=== PATIENT | male | born 1960 | race Caucasian/White ===

== ENCOUNTER 2021-05-23 11:04 | Emergency (ER) | payer BC, SELFPAY ==
[2021-05-23] VITALS (14 sets, daily range): BP systolic 119–136; BP diastolic 60–77; PULSE 63–89; RESP 16–26; TEMP 36.1; O2SAT 98–100
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
--- NOTE | 2021-05-23 11:09 | ECG_ITS ---
Measurements Intervals Bronson Rate: 75 P: 74 VT: 220 QRS: 72 QRSD: 116 T: 47 QT: 406 QTc: 455 Interpretive Statements SINUS RHYTHM WITH FIRST DEGREE AV BLOCK INCOMPLETE RIGHT BUNDLE BRANCH BLOCK BASELINE ARTIFACT- I, II, III ABNORMAL ECG Electronically Signed On 05-23-2021 20:48:13 CDT by Nathan Ramirez D.O.
[2021-05-23 11:14] LABS: Glucose Point of Care 222 mg/dl (65-105)
[2021-05-23 11:36] LABS: Glucose Point of Care 159 mg/dl (65-105)
[2021-05-23 12:05] LABS: Basophils Percent Auto 0.4 % (0.2-1.2); Eosinophils Percent Auto 0.3 % (0-4.4); Hematocrit 45.9 % (42.0-52.0); Hemoglobin 15.1 g/dL (14.0-18.0); Immature Granulocyte Absolute 0.02 K/mm3 (0.00-0.031); Immature Granulocyte Percent A 0.3 % (0-0.5); Lymphocytes Percent Auto 10.3 % (18.3-44.2); Mean Corpuscular HGB Conc 32.9 g/dl (32-36); Mean Corpuscular Hemoglobin 30.5 pg (26-34); Mean Corpuscular Volume 92.7 fl (80-100); Mean Platelet Volume 10.3 fl (7.4-10.4); Monocytes Absolute Auto 0.6 K/mm3 (0.1-0.6); Monocytes Percent Auto 9.4 % (2.6-8.5); Neutrophils Absolute Auto 5.4 K/mm3 (1.3-6.7); Neutrophils Percent Auto 79.3 % (45.5-73.1); Platelet Count Result 175 k/mm3 (150-375); Red Blood Count 4.95 M/mm3 (4.6-6.20); Red Cell Distribution Width 12.3 % (11.5-14.5); White Blood Count 6.8 K/mm3 (4.5-10.0)
[2021-05-23 12:14] LABS: Anion Gap 11 mmol/L (8-16); Blood Urea Nitrogen 14 mg/dL (9-20); Carbon Dioxide 27 mmol/L (22-30); Chloride 98 mmol/L (98-107); Estimated Glomerular Filt Rate > 60; Glucose 139 mg/dL (75-110); Potassium 3.6 mmol/L (3.4-5.0); Sodium 136 mmol/L (137-145)
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
== END 2021-05-23 13:31 | disposition home or self-care (01) ==
PROVIDERS: Emergency Provider Emergency Medicine
DX: E11.65 Type 2 diabetes mellitus with hyperglycemia (principal); Z79.4 Long term (current) use of insulin
CPT/HCPCS: 36415; 71045; 80048; 82948; 85025; 93005; 99283

== ENCOUNTER 2025-08-01 22:00 | Emergency (ER) | payer SELFPAY ==
--- OUTSIDE RECORDS SUMMARY | 2022-06-08 11:00 | XMS_ITS | Continuity of Care Document ---
Author Organization [facility] Address [address] [place] [address] Phone Care Team Providers Care Dietary Aide Cook Name Role Phone Chris Batista MD Unavailable Unavailable Allergies, Adverse Reactions, Alerts Substance Reaction Status Criticality PENICILLIN Active No Information Medications Medication Instructions Dosage Effective Dates (start - stop) Status Comments sulfamethoxazole 800 mg-trimethoprim 160 mg tablet Take 1 tablet two times a day; 12 hours apart for 7 days then stop. - Active Humalog U-100 Insulin 100 unit/mL subcutaneous solution inject by subcutaneous route per prescriber's instructions. Insulin dosing requires individualization. 0.00 - Active buspirone 5 mg tablet take 1 tablet by oral route 3 times every day 5 MG - Active Lantus U-100 Insulin 100 unit/mL subcutaneous solution inject by subcutaneous route as per insulin protocol 0.00 - Active Novolog U-100 Insulin aspart 100 unit/mL subcutaneous solution inject by subcutaneous route per prescriber's instructions. Insulin dosing requires individualization. 0.00 - Active Zyrtec 10 mg tablet take 1 tablet by oral route every day 10 MG - Active Procedures Procedure Date Office/outpatient Visit, Est Removal Of Chalazion Humphrey Eye Mask Office/outpatient Visit, Est Advance Directives Directive Yes / No Effective Date File Name No Information Encounters Encounter Description Practice Location Reason(s) For Visit Diagnoses Date Provider Providers Copied on Encounter Office/outpa tient Visit, [facility], [address], [place], [place], [id number], [place] tel:[phone] SEC Patricio PAT Professional 1 month f/o (chief complaint) Hordeolum externum of left upper eyelid 2 Lester Perez. [address] [facility] [address] [facility], [address], [place], [place], [address], . tel:[phone] [facility], [address], [place], [place], [address], [place] tel:[phone] SEC Lilly Castilloalana No Information 2 Lester Perez. [address], [facility] [place], [address], [place]. tel:[phone] Office/outpa tient Visit, [facility], [address], [place], [place], [address], [phone] SEC Lilly sainiema (chief complaint) Hordeolum externum of left upper eyelidPresepta l cellulitis 2 Lester Perez. [address] [address] [facility], [address], [place], [place], [address], . tel:[phone] Referring Provider: Chris Santiago, [address], [place], [address] . tel:[phone] Family History Family Member Type Diagnosis Age At Onset No Information Payers Payer name Insurance type Covered democrat ID Authorjudie morton(s[facility] [id number] Social History Type Description Quantity Date Captured Comments Alcohol Use Details No Caffeine Use Details No Tobacco Use Status Current non-smoker Smoking Status Never smoker Non-Smoking Tobacco Use Details : No Details Available : No Details Available Sex Male Chief Complaint And Reason For Visit From encounter dated '06/08/2022 16:00'. 1 month f/o (chief complaint). Description: The 61 year old patient presents for evaluation of 1 month f/u I&D FARHAN. Patient states the FARHAN is better. Not using anything at this time. Reason For Referral Reason For Referral No Information History Of Present Illness Encounter Date Complaint History Of Prese nt Illness 1 month f/o The 61 year old patient presents for evaluation of 1 month f/u I&D FARHAN. Patient states the FARHAN is better. Not using anything at this time. stye The 61 year old patient presents for evaluation of stye in the left eye. Hx of LASIK OU, IDDM I, and K ulcer OS. Pt reports he has had a stye on FARHAN for about 8-9 days, he saw Rocio Natarajan who prescribed him Keflex 500 mg BID PO although he didn't realize it was BID and he has been doing QD PO, it is better today than it has been but he would like to see if JMN can take it off. Pt reports he is using OTC gtts specifically for styes TID-QID OS and WC TID-5x/day OU. Functional Status Date Functional Assessmen t No Information Instructions Date Instruction Additional Infor mario Impression/Plan Impression/Plan Assessments Type Assessment Date assessment Hordeolum externum of left upper eyelid Patient Care Teams Name Effective Dates (start - stop) Status Members No Information
[2025-08-01 22:01] VITALS: BP 158/78; PULSE 81; RESP 15; TEMP 36.2; O2SAT 100
[2025-08-01 22:08] VITALS: O2SAT 100
--- OUTSIDE RECORDS SUMMARY | 2025-08-01 22:51 | XMS_ITS | Clinical Summary ---
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 Gender Identity Not on file Sexual Orientation Not on file Last Filed Vital Signs Vital Sign Reading Time Taken Comments Blood Pressure 160/74 01/03/2023 7:41 PM AMMUNITION SUPERVISOR Pulse 68 01/03/2023 7:41 PM AMMUNITION SUPERVISOR Temperature 36.4 C (97.5 F) 01/03/2023 7:41 PM AMMUNITION SUPERVISOR Respiratory Rate 18 01/03/2023 7:41 PM AMMUNITION SUPERVISOR Oxygen Saturation 100% 01/03/2023 7:41 PM AMMUNITION SUPERVISOR Inhaled Oxygen Concentration - - Weight 92.9 kg (204 lb 12.9 oz) 01/03/2023 7:41 PM AMMUNITION SUPERVISOR Height 182.9 cm (6') 01/03/2023 7:41 PM AMMUNITION SUPERVISOR Body Mass Index 27.78 01/03/2023 7:41 PM AMMUNITION SUPERVISOR Plan of Treatment Health Maintenance Due Date Last Done Comments Colorectal Cancer Screening Colonoscopy (10 Years) 1960 Hepatitis C 1978 DTaP, Tdap and Td Vaccines (1 - Tdap) 1979 Pneumococcal Vaccine: 50+ Years (2 of 2 - PCV) 2010 11/21/2008 COVID-19 Vaccine ( season) 2025 08/20/2022, 07/05/2021, 01/31/2021, Additional history exists RSV Immunization or 60+ Years (1 - 1-dose 75+ series) 2035 Zoster Vaccines Completed 08/07/2019, 04/21, 04/12/2018 Meningococcal B Vaccine Aged Out No l onger eligible based on patient's age to complete this topic Meningococcal Vaccine Aged Out No barbara ramila eligible based on patient's age to complete this topic RSV Immunizations Under 20 Months Aged Out No longer eligible based on patient's age to complete this topic Insurance [employer] Care Teams Social Media Coordinator Relationship Specialty Start Date End Date Nathanael Payne, RTR PCP - General 01/03/23
--- NOTE | 2025-08-01 23:05 | ED_ITS ---
HPI - General Adult General Chief complaint: Recheck/Abnormal Lab/Rx Stated complaint: Found unconscious/hypoglycemic Time Seen by Provider: 08/01/25 22:21 History of Present Illness HPI narrative: This is a 65-year-old male with history of diabetes presenting for altered mental status. Patient was at a game and do that his blood pressure was dropping since he had taken his insulin but had not eaten. He did not have any sugar tablets on him. He thought he could finish taking photos of the game and then get some food. However he then collapsed in EMS was called. His glucose was found to be 32. He was given dextrose and quickly returned to his baseline mental status. Patient has no complaints at this time. He has not had any recent illness. Denies fevers chills chest pain difficulty breathing abdominal pain nausea vomiting or diarrhea. Related Data Allergies Allergy/AdvReac Type Severity Reaction Status Date / Time PENICILLIN Allergy Intermediate Rash Uncoded 08/01/25 22:07 Exam Narrative: APPEARANCE: No apparent distress. Head: atraumatic. EYES: EOMI, NOSE: Atraumatic NECK: Trachea midline RESPIRATORY: No increased rate of breathing clear to auscultation CARDIOVASCULAR: RRR, no peripheral edema ABDOMINAL: Non-distended soft nontender no guarding rebound MUSCULOSKELETAl: No obvious deformities NEURO: Alert. Moving 4/4 extremities SKIN:: Warm, dry. Normal color PSYCHIATRIC: Normal affect Course Vital Signs Vital signs: Vital Signs Temperature 97.2 F L 08/01/25 22:01 Pulse Rate 81 08/01/25 22:01 Respiratory Rate 15 08/01/25 22:01 Blood Pressure 158/78 H 08/01/25 22:01 Pulse Oximetry 100 08/01/25 22:01 Oxygen Delivery Room Air 08/01/25 22:01 Temperature 97.2 F L 08/01/25 22:01 Pulse Rate 81 08/01/25 22:01 Respiratory Rate 15 08/01/25 22:01 Blood Pressure 158/78 H 08/01/25 22:01 Pulse Oximetry 100 08/01/25 22:08 Oxygen Delivery Room Air 08/01/25 22:08 Medical Decision Making MDM Narrative Medical decision making narrative: -Course: 65-year-old male presenting for altered mental status in setting of hypoglycemia. We have a clear cause is he gave himself insulin but did not eat. Patient returned to his baseline mental status by time I am a evaluated him in the room. I discussed getting basic labs as acute kidney injury can be a cause of hypoglycemia in an otherwise well controlled insulin-dependent diabetic and he has declined. He understands the risks benefits but would rather follow up with his primary physician. He is anxious to get out of the emergency department and does not want any interventions performed at this time. Patient is discharged. given return precautions. Vital Signs Vital Signs: Vital Signs Temperature 97.2 F L 08/01/25 22:01 Pulse Rate 81 08/01/25 22:01 Respiratory Rate 15 08/01/25 22:01 Blood Pressure 158/78 H 08/01/25 22:01 Pulse Oximetry 100 08/01/25 22:01 Oxygen Delivery Room Air 08/01/25 22:01 Temperature 97.2 F L 08/01/25 22:01 Pulse Rate 81 08/01/25 22:01 Respiratory Rate 15 08/01/25 22:01 Blood Pressure 158/78 H 08/01/25 22:01 Pulse Oximetry 100 08/01/25 22:08 Oxygen Delivery Room Air 08/01/25 22:08 Lab Data Labs: Lab Results 08/01/25 08/01/25 Range/Units 22:10 22:57 POC Capillary Glucose 170 H 149 H (65-105) mg/dl Discharge Plan Discharge Clinical Impression: Hypoglycemia Patient Disposition: Home Condition: Stable Instructions: Antibiotic Form, Hypoglycemia in a Person with Diabetes (DC) Additional Instructions: You were seen in the emergency department for hypoglycemia. Please make sure that you are eating if you give herself insulin. Please follow-up with your primary care physician for repeat lab work and re-evaluation. Return if you develop any new or worsening symptoms. Patient Language: Slovak Follow-up/Referrals: PHYSICIAN,CATERPILLAR MECHANIC [Primary Care Provider, Internal Medicine]
== END 2025-08-01 23:23 | disposition home or self-care (01) ==
PROVIDERS: Emergency Provider Emergency Medicine
DX: E11.649 Type 2 diabetes mellitus with hypoglycemia without coma (principal); Z79.4 Long term (current) use of insulin
CPT/HCPCS: 82948; 99283